=== PATIENT | female | born 1940 | race African-American/Black ===

== ENCOUNTER 2017-08-06 09:00 | Outpatient (RCR) | payer OTHER ==
[~2017-08-06 09:00] MED LIST: ACETAMINOPHEN325 M1 ORAL; ADVAIR 100-501 EACH INH; ASCORBIC ACID500 MG ORAL; ASOPT BOTH EYES; AZOPT10 ML BOTH EYES; CALCIUM500 M3 ORAL; DOCUSATE SODIU100 MG ORAL; DULCOLAX10 MG RC; DUONEB 0.5 MG-33 ML IH; FLEET ENEMA133 ML RC; LACTULOSE10 GM/153 PO; LOVENOX10 M4 SUBQ; LUMIGAN1 DROP BOTH EYES; MOM30 ML ORAL; MULTIVITAMINS1 EAC8 PO; NORCO 7.5-3251 EACH ORAL; NORCO 7.5/3251 EA ORAL; PRAVACHOL; PRAVASTATIN SOD40 M1 ORAL; PRILOSEC20 MG ORAL; RESTASIS1 EACH BOTH EYES; RESTORIL7.5 MG ORAL; SPIRIVA INHALE1 PUF1 INH; SPIRIVA18 MCG INH; SPRIVA INH; STROVITE1 EACH PO; TENORMIN25 MG ORAL; VITAMIN D1000 UNI1 ORAL; VITAMIN D3400 UNI2 PO; ZOFRAN4 MG ORAL; [UNRECOGNIZED DRUG - OTHER]; [UNRECOGNIZED DRUG - OTHER]
== END 2017-08-21 | disposition home or self-care (01) ==
LOC: PTY 09:00
DX: S72.001D Fracture of unspecified part of neck of right femur, subsequent encounter for closed fracture with routine healing (principal)

== ENCOUNTER 2017-08-27 09:30 | Outpatient (RCR) | payer OTHER | END 2017-09-21 | disposition home or self-care (01) | LOC: PTY 09:30 | DX: S72.001D Fracture of unspecified part of neck of right femur, subsequent encounter for closed fracture with routine healing (principal); X58.XXXD Exposure to other specified factors, subsequent encounter ==

== ENCOUNTER 2017-10-04 09:00 | Outpatient (RCR) | payer OTHER | END 2017-10-21 | disposition home or self-care (01) | LOC: PTY 09:00 | DX: S72.001D Fracture of unspecified part of neck of right femur, subsequent encounter for closed fracture with routine healing (principal); X58.XXXD Exposure to other specified factors, subsequent encounter ==